=== PATIENT | female | born 1975 | race African-American/Black ===

== ENCOUNTER 2018-01-02 15:25 | Emergency (ER) | payer SELFPAY ==
[~2018-01-02] VITALS: Ht 172.7 cm; Wt 81.8 kg
[2018-01-02 16:01] VITALS: BP 117/75
[2018-01-02] MEDS ORDERED: IBUPROFEN 600 MG TABLET PO ONE (16:15)
== END 2018-01-02 16:20 | disposition home or self-care (01) ==
LOC: EMS 15:27
DX: K02.9 Dental caries, unspecified (principal)
CPT/HCPCS: 99283